=== PATIENT | male | born 1990 | race Two or more races ===

== ENCOUNTER → 2021-02-23 17:00 | Outpatient (CLI) | payer OTHER | END | disposition home or self-care (01) | LOC: PPH VACUNA 17:00 | DX: Z23 Encounter for immunization (principal) ==

== ENCOUNTER 2021-03-16 | Outpatient (CLI) | payer OTHER | END 2021-03-16 13:44 | disposition home or self-care (01) | LOC: PPH VACUNA | DX: Z23 Encounter for immunization (principal) ==

== ENCOUNTER 2021-11-30 02:00 | Outpatient (CLI) | payer OTHER | END 2021-11-30 02:30 | disposition home or self-care (01) | LOC: PPH VACUNA 02:00 | PROVIDERS: ATTEND Emergency Medicine Pediatric Emergency Medicine | DX: Z23 Encounter for immunization (principal) ==